=== PATIENT | female | born 1995 | race Caucasian/White ===

== ENCOUNTER 2019-07-01 15:25 | Outpatient (CLI) | payer MEDICAID, SELFPAY ==
[2019-07-01 15:45] VITALS: BMI 34.2
[2019-07-01 15:50] VITALS: BP 146/62
[2019-07-01 16:24] LABS: Bilirubin Urine Neg (NEGATIVE); Blood Urine Neg (Negative); Glucose Urine UA Norm (Normal); Ketones Urine Negative (Negative); Leukocyte Esterase Urine Negative (Negative); Nitrate Urine Negative (Negative); Protein Urine Neg (Negative); Specific Gravity, Urine 1.015 (1.005-1.030); Urine Appearance Hazy (CLEAR); Urine Color Yellow (Yellow); Urobilinogen Urine Norm (Negative); pH Urine 7 (5-7)
[2019-07-01 16:31] LABS: Amorphous Sediment Urine 2+; Bacteria Urine TRACE; Mucus Urine TRACE; WBC Urine RARE /hpf (0-5)
[2019-07-01 16:32] LABS: Add Urine Culture? No
[2019-07-01 16:36] VITALS: BP 140/58; PULSE 86
[2019-07-01 16:50] VITALS: BP 140/58; PULSE 86; RESP 18; TEMP 36.7
[2019-07-01 16:52] VITALS: BP 0/0; BP 140/58; BP 149/72; PULSE 86; PULSE 98
[2019-07-01 16:56] VITALS: BP 145/83; PULSE 97; RESP 18; TEMP 36.7
== END 2019-07-01 17:12 | disposition home or self-care (01) ==
LOC: OPOB 15:52 → OBGYN 17:09 → OPOB 07-02 17:15
PROVIDERS: Visit Provider Family Medicine
DX: O26.899 Other specified pregnancy related conditions, unspecified trimester (principal); Z3A.00 Weeks of gestation of pregnancy not specified; R10.9 Unspecified abdominal pain
CPT/HCPCS: 81001; 99211

== ENCOUNTER 2019-07-10 12:00 | Outpatient (CLI) | payer MEDICAID, SELFPAY ==
[2019-07-10 16:30] VITALS: BP 130/82; PULSE 99; RESP 20; TEMP 36.4; O2SAT 98
[2019-07-10 16:45] VITALS: BP 130/82; PULSE 99; RESP 20; TEMP 36.4; O2SAT 98
[2019-07-10 17:05] VITALS: BP 130/82; PULSE 99; RESP 20; TEMP 36.4; O2SAT 98
== END 2019-07-10 12:01 | disposition home or self-care (01) ==
LOC: GILAB 02-06 11:27
PROVIDERS: PCP Family Medicine; Visit Provider Family Medicine
DX: Z29.13 Encounter for prophylactic Rho(D) immune globulin (principal)
CPT/HCPCS: 96372; 36415; 80500; 86850; 86900; 90384

== ENCOUNTER 2019-08-04 15:14 | Outpatient (CLI) | payer MEDICAID, SELFPAY ==
[2019-08-04] VITALS (7 sets, daily range): BP systolic 127–152; BP diastolic 56–78; PULSE 94–105; RESP 16; TEMP 36.7; BMI 36.6
[2019-08-04] MEDS: betamethasone susp 6 mg/mL 5 mL 12 MG IM (16:05)
[2019-08-04 16:06] LABS: Total Volume, Urine 2650 mL
[2019-08-04 16:54] LABS: Total Protein 24 Hour Urine 394.9 mg/24HR (0-150); Urine Total Protein 24 Hour 14.9 mg/dL (0-150)
== END 2019-08-04 17:35 | disposition home or self-care (01) ==
LOC: OPOB 15:33 → OBGYN 17:16 → OPOB 08-07 07:37
PROVIDERS: PCP Family Medicine; Visit Provider Family Medicine
DX: O16.9 Unspecified maternal hypertension, unspecified trimester (principal); Z3A.00 Weeks of gestation of pregnancy not specified
CPT/HCPCS: 59025; 84156; 96372; 99211; J0702

== ENCOUNTER 2019-08-18 16:30 | Outpatient (CLI) | payer MEDICAID, SELFPAY ==
[2019-08-18] VITALS (13 sets, daily range): BP systolic 128–165; BP diastolic 70–94; PULSE 92–105; RESP 16–17; TEMP 36.7; BMI 37.8
[2019-08-18 19:07] LABS: Total Protein 24 Hour Urine 548.6 mg/24HR (0-150); Total Volume, Urine 2650 mL; Urine Total Protein 24 Hour 20.7 mg/dL (0-150)
--- NOTE | 2019-08-18 19:44 | PC.NURSE ---
Dr. Teresa reported 2 recycled blood pressures that were elevated prior to discharging patient. Dr. Teresa gave this nurse orders to keep patient as inpatient overnight with Q2H blood pressure checks and NST Q shift. Patient was notified of Dr. Teresa's plan of care. Patient stated she was not staying in the hospital, and she knew what to do and when to come back if needed. Dr. Teresa aware of patient statement, and patient was educated by this nurse on importance of staying and being evaluated. Patient's SO stated I will bring her back if anything happens. Patient education reinforced by this nurse per Dr. Teresa on possibility of to her or her baby if worsening outcome was to happen. Patient signed AMA paper and left the floor ambulatory to hospital exit. DEBBIE PATRICK
== END 2019-08-18 19:41 | disposition home or self-care (01) ==
LOC: OPOB 16:56 → OBGYN 19:25 → OPOB 08-21 07:47
PROVIDERS: PCP Family Medicine; Visit Provider Family Medicine
DX: O16.9 Unspecified maternal hypertension, unspecified trimester (principal); Z3A.00 Weeks of gestation of pregnancy not specified
CPT/HCPCS: 59025; 84156; 99211

== ENCOUNTER 2019-08-20 16:15 | Outpatient (CLI) | payer MEDICAID, SELFPAY ==
[2019-08-20 16:39] VITALS: TEMP 37.1
[2019-08-20 16:41] VITALS: BMI 37.9
== END 2019-08-20 17:25 | disposition home or self-care (01) ==
PROVIDERS: PCP Family Medicine; Visit Provider Family Medicine
DX: O16.9 Unspecified maternal hypertension, unspecified trimester (principal); Z3A.00 Weeks of gestation of pregnancy not specified
CPT/HCPCS: 59025; 99211

== ENCOUNTER 2019-08-22 16:15 | Outpatient (CLI) | payer MEDICAID, SELFPAY ==
[2019-08-22 16:15] VITALS: BMI 37.8
[2019-08-22 16:20] VITALS: BP 155/81; PULSE 109; RESP 16; TEMP 36.8
[2019-08-22 16:37] VITALS: BP 140/76; PULSE 100; RESP 17
== END 2019-08-22 16:43 | disposition home or self-care (01) ==
PROVIDERS: PCP Family Medicine; Visit Provider Family Medicine
DX: O16.9 Unspecified maternal hypertension, unspecified trimester (principal); Z3A.00 Weeks of gestation of pregnancy not specified
CPT/HCPCS: 59025; 99211

== ENCOUNTER 2019-08-25 16:12 | Outpatient (CLI) | payer MEDICAID, SELFPAY ==
[2019-08-25 16:33] VITALS: RESP 18; TEMP 36.8
[2019-08-25 16:34] VITALS: BMI 37.4
[2019-08-25 18:10] VITALS: BP 142/82; PULSE 100
== END 2019-08-25 17:10 | disposition home or self-care (01) ==
PROVIDERS: PCP Family Medicine; Visit Provider Family Medicine
DX: O14.90 Unspecified pre-eclampsia, unspecified trimester (principal); Z3A.00 Weeks of gestation of pregnancy not specified
CPT/HCPCS: 59025; 99211

== ENCOUNTER 2019-08-29 16:05 | Outpatient (CLI) | payer MEDICAID, SELFPAY ==
[2019-08-29 16:38] VITALS: RESP 16; TEMP 37.1
[2019-08-29 16:39] LABS: Nitrazine Paper, PH Negative
[2019-08-29 17:16] VITALS: BP 143/74; PULSE 97
== END 2019-08-29 17:40 | disposition home or self-care (01) ==
LOC: OPOB 16:32 → OBGYN 17:04 → OPOB 08-30 08:26
PROVIDERS: PCP Family Medicine; Visit Provider Family Medicine
DX: O16.9 Unspecified maternal hypertension, unspecified trimester (principal); Z3A.00 Weeks of gestation of pregnancy not specified
CPT/HCPCS: 59025; 83986

== ENCOUNTER 2019-09-05 17:26 | Outpatient (CLI) | payer MEDICAID, SELFPAY ==
[2019-09-05 18:30] VITALS: BP 153/82; PULSE 93; RESP 18
== END 2019-09-05 18:30 | disposition home or self-care (01) ==
LOC: OPOB 17:30 → OBGYN 09-18 09:10
PROVIDERS: PCP Family Medicine; Visit Provider Family Medicine
DX: O16.3 Unspecified maternal hypertension, third trimester (principal); Z3A.00 Weeks of gestation of pregnancy not specified
CPT/HCPCS: 59025; 99211

== ENCOUNTER 2019-09-08 07:18 | Inpatient (IN) | payer MEDICAID, SELFPAY ==
[2019-09-05 18:27] VITALS: BP 0/0; BP 149/83; BP 153/82; BP 155/85; PULSE 88; PULSE 93; PULSE 96
[2019-09-08] VITALS (28 sets, daily range): BP systolic 109–158; BP diastolic 70–101; PULSE 74–109; RESP 14–20; TEMP 36.7–36.9; O2SAT 97–99
[2019-09-08] MEDS: metoclopramide 5 mg/mL SDV 2 mL 10 MG IVP (08:01)
[2019-09-08] MEDS: citric acid-sodium citrate 30 mL UDC PO (08:01)
[2019-09-08] MEDS: famotidine 20 mg/2 mL INJ IVP (08:02)
[2019-09-08] MEDS: lactated ringers 1,000 ML 999 ML IV ×2 (08:02→09:47)
[2019-09-08 08:09] LABS: Basophils % 0.2 %; Eosinophils # 0.2 10^3/uL (0.0-0.8); Eosinophils % 1.3 %; Hematocrit 29.4 % (37.0-47.0); Hemoglobin 9.3 g/dL (11.5-15.3); Lymphocytes # 2.8 10^3/uL (0.8-4.8); Lymphocytes % 16.2 %; Mean Corpuscular HGB Conc 31.6 g/dL (30.0-36.0); Mean Corpuscular Hemoglobin 26.3 pg (28.0-34.0); Mean Corpuscular Volume 83.1 fL (81-99); Mean Platelet Volume 11.1 fL (7.4-10.4); Monocytes # 0.8 10^3/uL (0.2-0.9); Monocytes % 4.8 %; Neutrophils # 13.4 10^3/uL (1.8-7.7); Neutrophils % 76.5 %; Nucleated Red Blood Cells % 0.1 %; Platelet Count 287 10^3/cmm (130-400); Red Blood Count 3.54 10^6/uL (4.1-5.3); White Blood Count 17.5 10^3/uL (4.0-10.0)
--- NOTE | 2019-09-08 09:07 | P.ANESASSM_ITS ---
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 Exam: Pre-Anes Outpt Exam: alert, oriented x 3, clear to auscultation bilaterally and regular rate & rhythm Airway: Submandibular: WNL Cervical ROM: WNL MP: 2 Dentition: Full History/ROS: No significant history except as noted and No significant complaints Pulmonary: Pulmonary: None reported CV/HEM: CV/HEM: None reported : : None reported Comments: no recent uti Hepatic: Hepatic: None reported GI: GI: None reported Metabolic: Metabolic: None reported Musc/skel: Musc/skel: None reported Neuropsych: Neuropsych: None reported Anesthetic Plan: ASA status: 2 Anesthesia: General and Regional (specify below) (SAB) Risk of > 500 ml blood loss (7ml/kg in children): No PFSH Anesthesia Female Reproductive History: : 2 Data Anesthesia CBC & Chem 7: 09/08/19 07:56 Other Labs: Laboratory Results - last 48 hr 09/08/19 07:56 WBC 17.5 H RBC 3.54 L Hgb 9.3 L Hct 29.4 L MCV 83.1 MCH 26.3 L MCHC 31.6 RDW 15.0 Plt Count 287 MPV 11.1 H Neut % (Auto) 76.5 Lymph % (Auto) 16.2 [place] % (Auto) 4.8 Eos % (Auto) 1.3 Baso % (Auto) 0.2 Neut # (Auto) 13.4 H Lymph # (Auto) 2.8 [place] # (Auto) 0.8 Eos # (Auto) 0.2 Baso # (Auto) 0.0 Nucleated RBC % (auto) 0.1 Nucleated RBCs # 0.0 Cardiac Studies: No Data to Display
[2019-09-08 11:11] LABS: Amphetamines Screen Urine Negative (Negative); Barbiturates Screen Urine Negative (Negative); Benzodiazepines Screen Urine Negative (Negative); Cocaine Screen Urine Negative (Negative); Opiate Screen Urine Negative (Negative); PCP Screen Urine Negative (Negative); THC Screen Urine Negative (Negative)
--- NOTE | 2019-09-08 11:29 | P.HP_ITS ---
Providers/Chief Complaint Admitting Physician: Carly Teresa MD Primary Care Provider: Carly Teresa MD Chief Complaint: csection HPI OPERATIONS MANAGER STATION History of Present Illness Rosenda Varner is a 24 year old female at 37 weeks 1 day gestation with an TIGRE of 09/28/2019 by a first trimester ultrasound, who is here for a scheduled repeat section. She is being sectioned at 37 weeks due to mild preeclampsia. The patient has an unusual case where she had early onset preeclampsia during her first yet made it to 35-37 weeks during that (originally pt said 37 weeks, modified this in third trimester to 35 wk). For this pregna ncy the patient was started on aspirin 162 mg daily starting at 12 weeks due to her hx, however pt was noncomplient with taking her medications. During this the patient had her first elevated blood pressure at 22 weeks 5 days gestation. She had complete PIH work-up with a 24-hour urine p rotein at that time and technically she did meet the criteria for mild preeclampsia. Her 24-hour urine protein was 389. She was otherwise asymptomatic and her other lab values were within normal limits. We monitored closely during the . She received betamethasone x2 at about 34 weeks. It was not until 34 weeks gestation that there was a trend upward in her blood pressure to 150s over 90s and again a 24-hour urine protein and PIH labs were obtained and were essentially unchanged at that time. The patient remained asymptomatic. At 35 weeks gestation her 24-hour urine protein had risen to over 500. Her BP's were remaining in the upper 150's over 90's. She was followed with twice weekly NSTs and monthly ultrasounds. Present Details : 2 Para: 1 Labs Rubella: Immune RPR: Negative GBS: Positive Review of Systems Const: Denies: fever or chills Eyes: Denies: change in vision or eye redness ENMT: Denies: enlarged tonsils Card: Denies: chest pain, palpitations or irregular heart rhythm Resp: Reports: non-productive cough (Normal, smokers); Denies: shortness of breath GI: Denies: abdominal pain, nausea or vomiting : Denies: flank pain or difficulty urinating Musc: Reports: back pain and extremity swelling Skin/Breast: Denies: rash Neuro: Denies: headache or weakness in extremities Tyson/Lymph: Denies: easy bruising or easy bleeding All/Imm: Denies: hives or throat swelling Medications/Allergies Allergies Allergy/AdvReac Type Severity Reaction Status Date / Time No Known Allergies Allergy Verified 08/20/19 17:11 Vitals/I&O/Wt Last Vital Signs Temp 98.5 F 09/08/19 07:45 Pulse 101 H 09/08/19 09:43 Resp 20 H 09/08/19 07:45 BP 145/92 09/08/19 09:43 Weight last 48 hrs Weight 224 lb Physical Exam Const: COMMON NORMALS: no apparent distress, average body habitus, healthy appearing and alert GENERAL APPEARANCE: cooperative ORIENTATION/CONSCIOUSNESS: Yes oriented to person HENMT: COMMON NORMALS: normocephalic and hearing grossly normal bilaterally HEAD & SCALP: normocephalic Eye: COMMON NORMALS: PERRL and EOMs intact bilaterally PUPIL: Yes PERRL Chest: COMMONS NORMALS: inspection of chest normal Resp: COMMON NORMALS: normal respiratory effort; negative for no use of accessory muscles Cardio: COMMON NORMALS: regular rate and regular rhythm RATE: regular rate RHYTHM: regular rhythm GI: COMMON NORMALS: soft to palpation and non-tender (Gravid) PALPATION: Yes soft : COMMON NORMALS: No no CVA tenderness BLADDER/KIDNEY EXAM: No no CVA tenderness Back/Pelvis: COMMON NORMALS: negative for no CVA tenderness Extremity: COMMON NORMALS: no pedal edema (Minimal); negative for no calf tenderness Neuro: SENSORIUM/ORIENTATION: Yes alert and Yes oriented to person Urinary Catheter Management^: Garduno: Cath Placed During This Visit: yes Reason for Continuing Indwelling Catheter: Perioperative Use in Selected Surgeries Urinary Catheter Date of Insertion: 09/08/19 Urinary Catheter Time of Insertion: 10:05 Data : 09/09/19 00:35 A&P Assessment and plan (1) Mild pre-eclampsia affecting second : Status: Acute Code(s): O14.00 - Mild to moderate pre-eclampsia, unspecified trimester (2) with 37 or more completed weeks gestation: Status: Acute (3) Tobacco use complicating : Status: Acute Code(s): O99.330 - Smoking (tobacco) complicating , unspecified trimester (4) History of drug abuse in remission: Status: Acute Code(s): F19.11 - Other psychoactive substance abuse, in remission (5) Hx of section complicating : Status: Acute Code(s): O34.219 - Maternal care for unspecified type scar from previous delivery Attestations Medical Necessity Statement*: Mild preeclampsia with need for delivery and routine postoperative and care Coding Level of Care Code Acute Research And Evaluation Analyst for g Fwd Exam Comprehensive Diagnoses Mild pre-eclampsia affecting second O14.00 with 37 or more completed weeks gestation Tobacco use complicating O99.330 History of drug abuse in remission F19.11 Hx of section complicating O34.219
--- NOTE | 2019-09-08 11:31 | PC.NURSE ---
NEEDS MORE EDUCATION AND REINFORCEMENT.
--- NOTE | 2019-09-08 11:54 | PM.OP ---
Operative Report Date of procedure: September 08, 2019 Pre-op Diagnosis: repeat c section Pre-op Diagnosis: Mild preeclampsia Post-op diagnosis: same Procedure Done: Repeat low transverse section via Pfannenstiel skin incision Specimens removed/disposition: Vertex male infant Pathology: none sent Anesthesia: Other (Spinal) Estimated blood loss (mL): 700 IV fluids (mL): 1,200 Urine output (mL): 50 Complications: None Condition: stable Disposition: floor Procedure: After informed consent patient was taken to the OR where spinal anesthesia was administered. She was prepped and draped in normal sterile fashion in dorsal supine position with a left lateral tilt. A Pfannenstiel skin incision was made through the previous scar and carried through to the underlying layer of fascia sharply. The fascial incision was then extended laterally using the Mayos. The fascia was grasped with Paulino clamps and the underlying rectus muscles were dissected off. The peritoneum was then entered bluntly using a hemostat. The bladder blade was inserted and the vesicouterine peritoneum was identified and entered sharply using the Metzenbaums. The bladder flap was then created digitally and the bladder blade was reinserted. Uterine incision was made in a transverse fashion in the lower uterine segment which was occupied by the placenta. Amniotic rupture membranes was performed manually. The 's head and body were delivered simultaneously with bulb suction of the mouth and naris after delivery. The cord was clamped and cut and the infant was handed to the waiting pediatric nurse. The placenta was delivered using fundal pressure. The uterus was then exteriorized from the abdomen and a dry sponge was used to clear the uterus of clots and debris. The uterine incision was repaired using 0 chromic in a running locked fashion. A second layer of the same suture was used in an imbricating manner. There was a small amount of bleeding from the right aspect and this was sutured with a [id number] suture of 0 chromic. Hemostasis was obtained and the uterus was returned returned to the abdomen. Irrigation was used to clear the gutters of clots and debris. The uterine incision was reinspected for hemostasis. The peritoneum was then reapproximated using 4-0 Vicryl. The rectus muscles were gently reapproximated using 1 [id number] suture of 4-0 Vicryl. The subfascial tissue was inspected for hemostasis and the fascia was then reapproximated using 0 Vicryl in a running fashion The subcutaneous tissue was irrigated and any small bleeders were coagulated using the Bovie. The subcutaneous tissue was then reapproximated using 4-0 Vicryl in a running fashion. The skin was then reapproximated using 4-0 Vicryl on a Zhang needle. Steri-Strips and a pressure bandage were applied. Patient went to recovery in stable condition. Sponge instrument and needle counts were correct
[2019-09-08] MEDS: docusate sodium 100 mg Capsule PO (18:23)
[2019-09-08] MEDS: ketorolac 30 mg/mL INJ IVP (18:23)
[2019-09-08] MEDS: dextrose 5%-lactated ringers 1,000 ML 125 ML IV (18:24)
[2019-09-08] MEDS: ferrous sulfate EC 325 mg Tablet PO (20:24)
--- NOTE | 2019-09-08 20:30 | PC.NURSE ---
Patient states she has passed gas. DEBBIE PATRICK
--- NOTE | 2019-09-08 22:09 | PC.NURSE ---
Patient up ambulating halls of OBGYN floor at 2145 08/2019. DEBBIE RN
[2019-09-09] VITALS: BP 135/80; PULSE 87; RESP 16; TEMP 36.9
[2019-09-09 01:02] LABS: Hematocrit 25.1 % (37.0-47.0); Hemoglobin 7.7 g/dL (11.5-15.3); Mean Corpuscular HGB Conc 30.7 g/dL (30.0-36.0); Mean Corpuscular Hemoglobin 26.2 pg (28.0-34.0); Mean Corpuscular Volume 85.4 fL (81-99); Mean Platelet Volume 10.9 fL (7.4-10.4); Platelet Count 258 10^3/cmm (130-400); Red Blood Count 2.94 10^6/uL (4.1-5.3)
[2019-09-09 03:50] VITALS: BP 141/72; PULSE 85; RESP 16; TEMP 36.8; O2SAT 98
[2019-09-09] MEDS: acetaminophen 325 mg Tablet 650 MG PO (04:01)
[2019-09-09 06:31] VITALS: BP 125/82; PULSE 84; RESP 18; TEMP 36.7
[2019-09-09] MEDS: docusate sodium 100 mg Capsule PO ×2 (09:01→19:42)
[2019-09-09] MEDS: prenatal vitamin Capsule 1 CAP PO (09:01)
[2019-09-09] MEDS: ferrous sulfate EC 325 mg Tablet PO ×2 (09:02→19:42)
[2019-09-09 09:06] VITALS: BP 148/86; PULSE 86; RESP 16; TEMP 37
[2019-09-09] MEDS: lanolin oint 7 gm 1 APPLIC TOPICAL (09:57)
[2019-09-09 16:27] VITALS: BP 147/91; PULSE 88; RESP 16; TEMP 36.8
--- NOTE | 2019-09-09 18:16 | PC.NURSE ---
Patient states she has to go downstairs to sign papers that her mother has. Automatic Splicing Machine Operator to room to stay with baby under lights while mom goes outside. Automatic Splicing Machine Operator looks at baby under lights and notes that baby is covered in spit up. Baby taken to nursery and given a bath. Mother off unit for 15 minutes. Automatic Splicing Machine Operator educated mother about frequently checking on baby to ensure he hasn't vomited on himself under lights. Mother verbalized understanding. Will continue to monitor and follow up as needed.
[2019-09-09] MEDS: HYDROcodone-acetaminophen 5-325 mg Tablet PO (19:42)
[2019-09-09 21:50] VITALS: BP 145/90; PULSE 82; RESP 16; TEMP 36.9
[2019-09-10 04:00] VITALS: BP 156/97; PULSE 96; RESP 16; TEMP 36.7; O2SAT 99
[2019-09-10] MEDS: HYDROcodone-acetaminophen 5-325 mg Tablet PO (06:23)
[2019-09-10] MEDS: docusate sodium 100 mg Capsule PO (08:57)
[2019-09-10] MEDS: prenatal vitamin Capsule 1 CAP PO (08:57)
[2019-09-10] MEDS: ferrous sulfate EC 325 mg Tablet PO (08:57)
[2019-09-10 09:40] VITALS: BP 148/88; PULSE 98; RESP 16; TEMP 36.9; O2SAT 99
--- NOTE | 2019-09-10 13:20 | P.DS_ITS ---
Discharge Providers ARCHIVAL RECORDS CLERK Date of Admission: 09/08/19 07:18 Date of Discharge: 09/10/19 Attending Provider at Admission: Carly Teresa MD Attending Provider at Discharge: Carly Teresa MD Primary Care Provider: Carly Teresa MD Diagnoses at Discharge Discharge Diagnosis (1) Mild pre-eclampsia affecting second : Status: Acute Problem details: Mildly elevated blood pressures not requiring antihypertensive will have the patient follow-up in clinic in 2 to 3 days for blood pressure check (2) with 37 or more completed weeks gestation: Status: Acute Problem details: Status post repeat section (3) Tobacco use complicating : Status: Acute (4) History of drug abuse in remission: Status: Acute Problem details: DFS was notified and signed off on the case Reason for Visit Reason for Visit: Reason For Visit: csection Hospital Course Discharge Summary: The patient was admitted for a scheduled repeat section secondary to mild preeclampsia and history of prior section. The patient did well postoperatively. On postop day #2 she was ambulating, tolerating a regular diet, had good pain control and was anxious for discharge home. Information Peripartum Data: Infant Delivery Method: Section Physical Exam Const: COMMON NORMALS: oriented x3 HENMT: COMMON NORMALS: normocephalic and head/scalp atraumatic HEAD & SCALP: normocephalic and atraumatic Chest: COMMONS NORMALS: inspection of chest normal Resp: COMMON NORMALS: normal respiratory effort, no retractions, no use of accessory muscles and clear to auscultation bilaterally AUSCULTATION: clear to auscultation bilaterally Cardio: COMMON NORMALS: regular rate and regular rhythm RATE: regular rate RHYTHM: regular rhythm GI: COMMON NORMALS: normal to inspection, nondistended, normoactive bowel sounds, soft to palpation (Incision clean dry and intact) and non-tender PALPATION: Yes soft (Incision clean dry and intact) Extremity: GENERAL: No calf tenderness and Yes edema Neuro: COMMON NORMALS: oriented x3 Urinary Catheter Management^: Garduno: Cath Placed During This Visit: yes, but has since been removed by the nurse Reason for Continuing Indwelling Catheter: Decision to DC Catheter Urinary Catheter Date of Insertion: 09/08/19 Urinary Catheter Time of Insertion: 10:05 Date Urinary Catheter Removed: 09/09/19 Time Urinary Catheter Discontinued: 01:15 Discharge Data Vitals: Last Vital Signs Temp 98.4 F 09/10/19 09:40 Pulse 98 09/10/19 09:40 Resp 16 09/10/19 09:40 BP 148/88 09/10/19 09:40 Pulse Ox 99 09/10/19 09:40 Discharge Plan Discharge Patient Disposition: Home, Self-Care Condition: Stable Prescriptions: New ibuprofen 800 mg Tablet 800 mg PO TID PRN (Reason: Abdominal Discomfort) Qty: 40 RF: 0 hydrocodone-acetaminophen 5-325 mg Tablet 1 - 2 tab PO Q4H PRN (Reason: Moderate To Severe Pain) Qty: 10 RF: 0 docusate sodium 100 mg Capsule 100 mg PO BID Qty: 60 RF: 0 Continued ferrous sulfate [Iron (ferrous sulfate)] 325 mg (65 mg iron) Tablet 325 mg PO DAILY RF: 0 Multi 27-800 mg-mcg Tablet 1 tab PO DAILY RF: 0 Discontinued aspirin [Aspir-Low] 81 mg Tablet,Delayed Release (Dr/Ec) 81 mg PO DAILY RF: 0 Discharge Orders: Discharge Order (Routine); Ordered 09/10/19 Ordered By: Carly Teresa Referrals: Carly Teresa MD [Primary Care Provider] - 1-3 days Discharge Diet: Usual diet Discharge Activity: Limit activity as instructed Discharge Attestations ARCHIVAL RECORDS CLERK Time Spent in Discharge Care*: less than 30 min Coding Level of Care Code Acute Hospital Sales Representative for Chg Fwd Diagnoses Mild pre-eclampsia affecting second O14.00 with 37 or more completed weeks gestation Tobacco use complicating O99.330 History of drug abuse in remission F19.11
[2019-09-10 14:25] VITALS: BP 170/100; PULSE 88; RESP 16; TEMP 37; O2SAT 99
[2019-09-10 14:40] VITALS: BP 162/99; PULSE 92; RESP 17
== END 2019-09-10 15:10 | disposition left against medical advice (07) | DRG 788 ==
PROVIDERS: Admitting Provider Family Medicine; PCP Family Medicine; Visit Provider Family Medicine
PROC: 10D00Z1 Extraction of Products of Conception, Low, Open Approach (ICD-10-PCS; CPT 59514; principal; 2019-09-08 10:00)
DX: O14.02 Mild to moderate pre-eclampsia, second trimester (principal); Z37.0 Single live birth; O99.330 Smoking (tobacco) complicating pregnancy, unspecified trimester; F19.11 Other psychoactive substance abuse, in remission; O71.81 Laceration of uterus, not elsewhere classified; O34.219 Maternal care for unspecified type scar from previous cesarean delivery; Z3A.37 37 weeks gestation of pregnancy; Z79.82 Long term (current) use of aspirin
CPT/HCPCS: 12345; 36415; 51702; 59025; 59409; 80306; 85025; 85027; 85460; 86850; 86870; 86900; 90384; 96372; 96374; 96375; 98960; 99211; J0690; J1885; J2274; J2370; J2405; J2590; J2765; J3010; J3490; J7030